=== PATIENT | male | born 1990 | race Caucasian/White ===

== ENCOUNTER 2018-04-23 10:30 | Inpatient (IN) | payer OTHER, MEDICAID ==
[2018-04-23] MEDS ORDERED: METOPROLOL TART 25 MG TABLET PO (11:00)
[2018-04-23] MEDS: LORazepam 2 MG TAB PO ×2 (11:44→19:15)
[2018-04-23] MEDS ORDERED: MOM 30ML SUSPENSION UDC PO (16:00)
[2018-04-23] MEDS ORDERED: THIAMINE 100 MG TAB PO (16:15)
[2018-04-23] MEDS ORDERED: NICOTINE 21MG/24HR 1 EA TRANSDERMAL TD (16:30)
[2018-04-23] MEDS: GABAPENTIN 300 MG CAP PO ×2 (16:39→20:27)
[2018-04-23] MEDS: OMEPRAZOLE 20 MG CAP PO (16:39)
[2018-04-23] MEDS: ASPIRIN 81 MG ENTERIC TAB PO (16:39)
[2018-04-23] MEDS: NICOTINE 21MG/24HR 1 EA TRANSDERMAL TD (16:40)
[2018-04-23] MEDS: LORazepam 1 MG TAB PO (17:16)
[2018-04-23] MEDS: QUEtiapine FUMARATE 200 MG TAB PO (20:27)
[2018-04-23] MEDS: ACETAMINOPHEN TAB 650MG DOSE (2X325MG) PO (20:33)
[2018-04-23] MEDS: OXAZEPAM 15 MG CAP PO (20:56)
[2018-04-24] MEDS: OXAZEPAM 15 MG CAP PO ×6 (04:49→17:21)
[2018-04-24] MEDS: cloNIDine 0.1 MG TAB PO (07:41)
[2018-04-24] MEDS ORDERED: NICOTINE 21MG/24HR 1 EA TRANSDERMAL TD (09:00)
[2018-04-24] MEDS: VENLAFAXINE 37.5 MG TAB PO ×2 (09:00→22:52)
[2018-04-24] MEDS ORDERED: THIAMINE 100 MG TAB PO (09:00)
[2018-04-24 09:27] LABS: HEMATOCRIT 50.8 % (42.0-52.0); HEMOGLOBIN 16.8 g/dl (13.5-17.5); MEAN CORPUSCULAR HEMOGLOBIN 29.7 pg (27.0-33.0); MEAN CORPUSCULAR HGB CONC 33.1 g/dl (32.0-36.5); MEAN CORPUSCULAR VOLUME 89.9 fl (80.0-96.0); PLATELET COUNT, AUTOMATED 221 10^3/uL (150-450); RED BLOOD COUNT 5.65 10^6/uL (4.30-6.10); RED CELL DISTRIBUTION WIDTH 13.5 % (11.5-14.5)
[2018-04-24] MEDS: FOLIC ACID 1 MG TAB PO (09:47)
[2018-04-24] MEDS: GABAPENTIN 300 MG CAP PO ×3 (09:47→22:53)
[2018-04-24] MEDS: OMEPRAZOLE 20 MG CAP PO (09:47)
[2018-04-24] MEDS: THIAMINE 100 MG TAB PO ×2 (09:47→22:53)
[2018-04-24] MEDS: NICOTINE 21MG/24HR 1 EA TRANSDERMAL TD (09:48)
[2018-04-24] MEDS: MULTIVITAMINS/MINERALS THERAP 1 TAB PO (09:48)
[2018-04-24] MEDS: ASPIRIN 81 MG ENTERIC TAB PO (09:48)
[2018-04-24 09:56] LABS: ALBUMIN 3.8 GM/DL (3.2-5.2); ALBUMIN/GLOBULIN RATIO 1.06 (1.00-1.93); ALKALINE PHOSPHATASE 79 U/L (45-117); ALT/SGPT 16 U/L (12-78); AMYLASE 45 U/L (25-115); ANION GAP 6 MEQ/L (8-16); AST/SGOT 9 U/L (7-37); BILIRUBIN,TOTAL 0.6 MG/DL (0.2-1.0); BLOOD UREA NITROGEN 8 MG/DL (7-18); CALCIUM LEVEL 9.2 MG/DL (8.5-10.1); CARBON DIOXIDE LEVEL 26 MEQ/L (21-32); CHLORIDE LEVEL 109 MEQ/L (98-107); CREATININE FOR GFR 1.05 MG/DL (0.70-1.30); GLOMERULAR FILTRATION RATE > 60.0 (>60); GLUCOSE, FASTING 103 MG/DL (70-100); LIPASE 170 U/L (73-393); POTASSIUM SERUM 3.9 MEQ/L (3.5-5.1); SODIUM LEVEL 141 MEQ/L (136-145); THYROID STIMULATING HORMONE 0.546 uIU/ML (0.358-3.740); TOTAL PROTEIN 7.4 GM/DL (6.4-8.2)
[2018-04-24 12:02] LABS: HEPATITIS B SURFACE ANTIGEN NEGATIVE (NEGATIVE)
[2018-04-24 12:30] LABS: HEPATITIS B CORE ANTIBODY IGM NEGATIVE (NEGATIVE)
[2018-04-24 12:31] LABS: HIV 1&2 SCREEN CENTAUR NEGATIVE (NEGATIVE)
[2018-04-24 12:32] LABS: HEPATITIS A ANTIBODY IGM NEGATIVE (NEGATIVE)
[2018-04-24 12:57] LABS: HEPATITIS C VIRUS ABY INDEX > 11.0 INDEX (<0.8)
[2018-04-24] MEDS: RIVAROXABAN 20 MG TAB (XARELTO) PO (17:21)
[2018-04-24] MEDS: MAALOX 30 ML SUSP *UDC PO (19:50)
[2018-04-25] MEDS: QUEtiapine FUMARATE 200 MG TAB PO ×2 (00:07→23:42)
[2018-04-25] MEDS: OXAZEPAM 15 MG CAP PO ×4 (00:08→17:53)
[2018-04-25] MEDS: THIAMINE 100 MG TAB PO ×2 (10:01→21:34)
[2018-04-25] MEDS: ASPIRIN 81 MG ENTERIC TAB PO (10:01)
[2018-04-25] MEDS: NICOTINE 21MG/24HR 1 EA TRANSDERMAL TD (10:01)
[2018-04-25] MEDS: GABAPENTIN 300 MG CAP PO ×3 (10:01→21:35)
[2018-04-25] MEDS: FOLIC ACID 1 MG TAB PO (10:02)
[2018-04-25] MEDS: OMEPRAZOLE 20 MG CAP PO (10:02)
[2018-04-25] MEDS: VENLAFAXINE 37.5 MG TAB PO ×2 (10:02→21:34)
[2018-04-25] MEDS: MULTIVITAMINS/MINERALS THERAP 1 TAB PO (10:02)
[2018-04-25] MEDS: RIVAROXABAN 20 MG TAB (XARELTO) PO (17:53)
[2018-04-26] MEDS: GABAPENTIN 300 MG CAP PO ×3 (08:22→23:01)
[2018-04-26] MEDS: FOLIC ACID 1 MG TAB PO (08:22)
[2018-04-26] MEDS: OMEPRAZOLE 20 MG CAP PO (08:22)
[2018-04-26] MEDS: MULTIVITAMINS/MINERALS THERAP 1 TAB PO (08:22)
[2018-04-26] MEDS: NICOTINE 21MG/24HR 1 EA TRANSDERMAL TD (08:22)
[2018-04-26] MEDS: ASPIRIN 81 MG ENTERIC TAB PO (08:22)
[2018-04-26] MEDS: VENLAFAXINE 37.5 MG TAB PO ×2 (08:28→23:01)
[2018-04-26] MEDS: THIAMINE 100 MG TAB PO ×2 (08:28→23:01)
[2018-04-26] MEDS: OXAZEPAM 15 MG CAP PO (11:54)
[2018-04-26] MEDS: RIVAROXABAN 20 MG TAB (XARELTO) PO (18:06)
[2018-04-26] MEDS: QUEtiapine FUMARATE 200 MG TAB PO (23:01)
[2018-04-26] MEDS: MAALOX 30 ML SUSP *UDC PO (23:04)
[2018-04-27] MEDS: FOLIC ACID 1 MG TAB PO (08:22)
[2018-04-27] MEDS: MULTIVITAMINS/MINERALS THERAP 1 TAB PO (08:22)
[2018-04-27] MEDS: GABAPENTIN 300 MG CAP PO (08:22)
[2018-04-27] MEDS: OMEPRAZOLE 20 MG CAP PO (08:22)
[2018-04-27] MEDS: VENLAFAXINE 37.5 MG TAB PO (08:24)
[2018-04-27] MEDS: ASPIRIN 81 MG ENTERIC TAB PO (08:24)
[2018-04-27] MEDS: NICOTINE 21MG/24HR 1 EA TRANSDERMAL TD (08:24)
[2018-04-28 00:06] LABS: HCV RNA NAA QUALITATIVE Negative (Negative)
== END 2018-04-27 13:00 | disposition home or self-care (01) | DRG 751 ==
LOC: M ED 10:30 → M ED INP 13:28 → M PSY 14:40
DX: F33.2 Major depressive disorder, recurrent severe without psychotic features (principal); F19.24 Other psychoactive substance dependence with psychoactive substance-induced mood disorder; F10.10 Alcohol abuse, uncomplicated; F17.210 Nicotine dependence, cigarettes, uncomplicated; K21.9 Gastro-esophageal reflux disease without esophagitis; G89.29 Other chronic pain; R10.11 Right upper quadrant pain; Z79.01 Long term (current) use of anticoagulants; Z79.899 Other long term (current) drug therapy; Z86.19 Personal history of other infectious and parasitic diseases; Z88.0 Allergy status to penicillin

== ENCOUNTER 2018-05-01 01:40 | Inpatient (IN) | payer OTHER ==
[2018-05-01 02:18] LABS: HEMATOCRIT 43.8 % (42.0-52.0); HEMOGLOBIN 14.5 g/dl (13.5-17.5); MEAN CORPUSCULAR HEMOGLOBIN 30.1 pg (27.0-33.0); MEAN CORPUSCULAR HGB CONC 33.1 g/dl (32.0-36.5); MEAN CORPUSCULAR VOLUME 91.1 fl (80.0-96.0); PLATELET COUNT, AUTOMATED 186 10^3/uL (150-450); RED BLOOD COUNT 4.81 10^6/uL (4.30-6.10); WHITE BLOOD COUNT 8.9 10^3/uL (4.0-10.0)
[2018-05-01 02:50] LABS: ALBUMIN 3.5 GM/DL (3.2-5.2); ALBUMIN/GLOBULIN RATIO 1.06 (1.00-1.93); ALKALINE PHOSPHATASE 73 U/L (45-117); ALT/SGPT 30 U/L (12-78); ANION GAP 8 MEQ/L (8-16); AST/SGOT 72 U/L (7-37); BILIRUBIN,DIRECT < 0.1 MG/DL (0.0-0.2); BILIRUBIN,TOTAL 0.2 MG/DL (0.2-1.0); BLOOD UREA NITROGEN 8 MG/DL (7-18); CARBON DIOXIDE LEVEL 26 MEQ/L (21-32); CHLORIDE LEVEL 109 MEQ/L (98-107); ETHYL ALCOHOL (ETHANOL) 0.202 % (0.000-0.010); GLOMERULAR FILTRATION RATE > 60.0 (>60); GLUCOSE, FASTING 99 MG/DL (70-100); POTASSIUM SERUM 3.6 MEQ/L (3.5-5.1); SALICYLATE LEVEL 1.8 MG/DL (5.0-30.0); SODIUM LEVEL 143 MEQ/L (136-145); THYROID STIMULATING HORMONE 0.344 uIU/ML (0.358-3.740); TOTAL PROTEIN 6.8 GM/DL (6.4-8.2)
[2018-05-01 02:52] LABS: ACETAMINOPHEN LEVEL < 2.0 UG/ML (10.0-30.0)
[2018-05-01 07:15] LABS: AMPHETAMINES LEVEL URINE NEGATIVE (NEGATIVE); BARBITURATES URINE NEGATIVE (NEGATIVE); BENZODIAZEPINES URINE NEGATIVE (NEGATIVE); CANNABINOIDS URINE POSITIVE (NEGATIVE); COCAINE METABOLITE URINE NEGATIVE (NEGATIVE); METHADONE URINE NEGATIVE (NEGATIVE); OPIATES URINE NEGATIVE (NEGATIVE); PHENCYCLIDINE URINE NEGATIVE (NEGATIVE)
[2018-05-01] MEDS: OXAZEPAM 15 MG CAP PO (09:15)
[2018-05-01] MEDS ORDERED: ACETAMINOPHEN TAB 650MG DOSE (2X325MG) PO (13:00)
[2018-05-01] MEDS ORDERED: traZODone 50 MG TAB PO (13:00)
[2018-05-01] MEDS ORDERED: MAALOX 30 ML SUSP *UDC PO (13:00)
[2018-05-01] MEDS ORDERED: MOM 30ML SUSPENSION UDC PO (13:00)
[2018-05-01] MEDS: THIAMINE 100 MG TAB PO ×2 (14:10→21:00)
[2018-05-01] MEDS: FOLIC ACID 1 MG TAB PO (14:10)
[2018-05-01] MEDS: NICOTINE 21MG/24HR 1 EA TRANSDERMAL TD (14:10)
[2018-05-01] MEDS: MULTIVITAMINS/MINERALS THERAP 1 TAB PO (14:10)
[2018-05-01] MEDS: LORazepam 2 MG TAB PO ×2 (14:18→20:09)
[2018-05-01 15:16] LABS: AMYLASE 45 U/L (25-115); LIPASE 150 U/L (73-393)
[2018-05-01] MEDS: OMEPRAZOLE 20 MG CAP PO (15:54)
[2018-05-01] MEDS: GABAPENTIN 300 MG CAP PO ×2 (15:54→21:00)
[2018-05-01] MEDS: RIVAROXABAN 20 MG TAB (XARELTO) PO (17:20)
[2018-05-02] MEDS: QUEtiapine FUMARATE 100 MG TAB PO ×2 (00:32→23:22)
[2018-05-02] MEDS: LORazepam 2 MG TAB PO ×3 (00:37→23:16)
[2018-05-02] MEDS: GABAPENTIN 300 MG CAP PO ×3 (08:45→23:18)
[2018-05-02] MEDS: FOLIC ACID 1 MG TAB PO (08:45)
[2018-05-02] MEDS: THIAMINE 100 MG TAB PO ×2 (08:45→23:18)
[2018-05-02] MEDS: MULTIVITAMINS/MINERALS THERAP 1 TAB PO (08:45)
[2018-05-02] MEDS: OMEPRAZOLE 20 MG CAP PO (08:45)
[2018-05-02] MEDS: NICOTINE 21MG/24HR 1 EA TRANSDERMAL TD (08:46)
[2018-05-02] MEDS: RIVAROXABAN 20 MG TAB (XARELTO) PO (17:31)
[2018-05-03] MEDS: GABAPENTIN 300 MG CAP PO ×3 (08:04→20:36)
[2018-05-03] MEDS: THIAMINE 100 MG TAB PO ×2 (08:04→20:36)
[2018-05-03] MEDS: NICOTINE 21MG/24HR 1 EA TRANSDERMAL TD (08:04)
[2018-05-03] MEDS: FOLIC ACID 1 MG TAB PO (08:04)
[2018-05-03] MEDS: MULTIVITAMINS/MINERALS THERAP 1 TAB PO (08:04)
[2018-05-03] MEDS: OMEPRAZOLE 20 MG CAP PO (08:04)
[2018-05-03] MEDS: RIVAROXABAN 20 MG TAB (XARELTO) PO (17:04)
[2018-05-03] MEDS: QUEtiapine FUMARATE 100 MG TAB PO (23:03)
[2018-05-04] MEDS: NICOTINE 21MG/24HR 1 EA TRANSDERMAL TD (09:06)
[2018-05-04] MEDS: OMEPRAZOLE 20 MG CAP PO (09:06)
[2018-05-04] MEDS: FOLIC ACID 1 MG TAB PO (09:06)
[2018-05-04] MEDS: MULTIVITAMINS/MINERALS THERAP 1 TAB PO (09:06)
[2018-05-04] MEDS: GABAPENTIN 300 MG CAP PO (09:06)
[2018-05-04] MEDS: MUPIROCIN 2% OINT 22 GM TUBE TOP (12:01)
[2018-05-04] MEDS: TETANUS/DIPHTHERIA TOX ADSORB ADULT 0.5ML SYR/VIAL (90714) IM (12:05)
== END 2018-05-04 14:30 | disposition home or self-care (01) | DRG 753 ==
LOC: M ED 01:40 → M ED INP 10:57 → M PSY 12:26
DX: F32.89 Other specified depressive episodes (principal); D68.9 Coagulation defect, unspecified; Z91.5 Personal history of self-harm; K21.9 Gastro-esophageal reflux disease without esophagitis; F17.200 Nicotine dependence, unspecified, uncomplicated; G89.29 Other chronic pain; R94.6 Abnormal results of thyroid function studies; Z79.01 Long term (current) use of anticoagulants; Z79.899 Other long term (current) drug therapy; Z88.0 Allergy status to penicillin

== ENCOUNTER 2018-05-08 21:23 | Inpatient (IN) | payer OTHER ==
[2018-05-08 23:04] LABS: HEMATOCRIT 44.6 % (42.0-52.0); HEMOGLOBIN 14.4 g/dl (13.5-17.5); MEAN CORPUSCULAR HGB CONC 32.3 g/dl (32.0-36.5); MEAN CORPUSCULAR VOLUME 92.9 fl (80.0-96.0); PLATELET COUNT, AUTOMATED 195 10^3/uL (150-450); RED CELL DISTRIBUTION WIDTH 14.6 % (11.5-14.5); WHITE BLOOD COUNT 9.1 10^3/uL (4.0-10.0)
[2018-05-08 23:23] LABS: ALBUMIN 3.4 GM/DL (3.2-5.2); ALBUMIN/GLOBULIN RATIO 1.03 (1.00-1.93); ALKALINE PHOSPHATASE 71 U/L (45-117); ALT/SGPT 25 U/L (12-78); ANION GAP 10 MEQ/L (8-16); AST/SGOT 30 U/L (7-37); BILIRUBIN,DIRECT < 0.1 MG/DL (0.0-0.2); BILIRUBIN,TOTAL 0.3 MG/DL (0.2-1.0); BLOOD UREA NITROGEN 7 MG/DL (7-18); CALCIUM LEVEL 7.9 MG/DL (8.5-10.1); CARBON DIOXIDE LEVEL 25 MEQ/L (21-32); CHLORIDE LEVEL 110 MEQ/L (98-107); CREATININE FOR GFR 0.88 MG/DL (0.70-1.30); ETHYL ALCOHOL (ETHANOL) 0.041 % (0.000-0.010); GLOMERULAR FILTRATION RATE > 60.0 (>60); GLUCOSE, FASTING 98 MG/DL (70-100); POTASSIUM SERUM 3.6 MEQ/L (3.5-5.1); SALICYLATE LEVEL < 1.7 MG/DL (5.0-30.0); SODIUM LEVEL 145 MEQ/L (136-145); THYROID STIMULATING HORMONE 0.796 uIU/ML (0.358-3.740); TOTAL PROTEIN 6.7 GM/DL (6.4-8.2)
[2018-05-08 23:25] LABS: AMPHETAMINES LEVEL URINE NEGATIVE (NEGATIVE); BARBITURATES URINE NEGATIVE (NEGATIVE); BENZODIAZEPINES URINE NEGATIVE (NEGATIVE); CANNABINOIDS URINE POSITIVE (NEGATIVE); COCAINE METABOLITE URINE NEGATIVE (NEGATIVE); METHADONE URINE NEGATIVE (NEGATIVE); OPIATES URINE NEGATIVE (NEGATIVE); PHENCYCLIDINE URINE NEGATIVE (NEGATIVE)
[2018-05-08 23:26] LABS: ACETAMINOPHEN LEVEL < 2.0 UG/ML (10.0-30.0)
[2018-05-09] MEDS ORDERED: ACETAMINOPHEN TAB 650MG DOSE (2X325MG) PO (01:00)
[2018-05-09] MEDS ORDERED: MOM 30ML SUSPENSION UDC PO (01:00)
[2018-05-09] MEDS ORDERED: MAALOX 30 ML SUSP *UDC PO (01:00)
[2018-05-09] MEDS: NICOTINE 21MG/24HR 1 EA TRANSDERMAL TD (08:51)
[2018-05-09] MEDS: GABAPENTIN 300 MG CAP PO ×3 (08:51→22:03)
[2018-05-09] MEDS: OMEPRAZOLE 20 MG CAP PO (08:51)
[2018-05-09] MEDS: RIVAROXABAN 20 MG TAB (XARELTO) PO (19:30)
[2018-05-09] MEDS: QUEtiapine FUMARATE 100 MG TAB PO (23:24)
[2018-05-10] MEDS: ACYCLOVIR 5% OINT 15GM TOP ×5 (06:02→22:38)
[2018-05-10] MEDS: BACITRACIN OINT 30GM TOP ×2 (08:46→21:00)
[2018-05-10] MEDS: NICOTINE 21MG/24HR 1 EA TRANSDERMAL TD (08:46)
[2018-05-10] MEDS: MUPIROCIN 2% OINT 22 GM TUBE TOP ×2 (08:49→21:00)
[2018-05-10] MEDS: GABAPENTIN 300 MG CAP PO ×3 (08:52→22:36)
[2018-05-10] MEDS: OMEPRAZOLE 20 MG CAP PO (08:52)
[2018-05-10] MEDS: RIVAROXABAN 20 MG TAB (XARELTO) PO (17:47)
[2018-05-10] MEDS: QUEtiapine FUMARATE 100 MG TAB PO (22:37)
[2018-05-11] MEDS: ACYCLOVIR 5% OINT 15GM TOP ×3 (06:08→12:24)
[2018-05-11] MEDS: GABAPENTIN 300 MG CAP PO (08:50)
[2018-05-11] MEDS: BACITRACIN OINT 30GM TOP (08:50)
[2018-05-11] MEDS: OMEPRAZOLE 20 MG CAP PO (08:50)
[2018-05-11] MEDS: MUPIROCIN 2% OINT 22 GM TUBE TOP (08:50)
[2018-05-11] MEDS: NICOTINE 21MG/24HR 1 EA TRANSDERMAL TD (09:00)
== END 2018-05-11 13:30 | disposition home or self-care (01) | DRG 754 ==
LOC: M ED INP 05-09 00:41 → M PSY 05-09 03:15 → M ED 21:23
DX: F32.9 Major depressive disorder, single episode, unspecified (principal); D68.9 Coagulation defect, unspecified; F10.10 Alcohol abuse, uncomplicated; F19.94 Other psychoactive substance use, unspecified with psychoactive substance-induced mood disorder; Z59.0 Homelessness; Z79.899 Other long term (current) drug therapy; B18.2 Chronic viral hepatitis C; K21.9 Gastro-esophageal reflux disease without esophagitis; G47.00 Insomnia, unspecified; F41.9 Anxiety disorder, unspecified; G89.29 Other chronic pain

== ENCOUNTER 2018-05-11 23:07 | Emergency (ER) | payer OTHER ==
[2018-05-11 21:28] LABS: BASO % 0.2 % (0.0-1.0); EOS # 0.1 10^3/uL (0.0-0.50); EOS % 0.8 % (0.0-3.0); HEMATOCRIT 47.1 % (42.0-52.0); HEMOGLOBIN 15.6 g/dl (13.5-17.5); IMMATURE GRANULOCYTE % 0.3 % (0-3.0); LYMPH # 2.1 10^3/uL (1.5-6.5); LYMPH % 20.4 % (24.0-44.0); MEAN CORPUSCULAR HEMOGLOBIN 30.2 pg (27.0-33.0); MEAN CORPUSCULAR HGB CONC 33.1 g/dl (32.0-36.5); MEAN CORPUSCULAR VOLUME 91.1 fl (80.0-96.0); MONO # 0.5 10^3/uL (0.0-0.8); MONO % 4.7 % (0.0-5.0); NEUTROPHILS # 7.6 10^3/uL (1.8-7.7); NEUTROPHILS % 73.6 % (36.0-66.0); PLATELET COUNT, AUTOMATED 203 10^3/uL (150-450); RED BLOOD COUNT 5.17 10^6/uL (4.30-6.10); RED CELL DISTRIBUTION WIDTH 14.4 % (11.5-14.5); WHITE BLOOD COUNT 10.4 10^3/uL (4.0-10.0)
[2018-05-11] MEDS: NS 1,000 ML IV (21:38)
[2018-05-11 21:39] LABS: ALBUMIN 3.7 GM/DL (3.2-5.2); ALKALINE PHOSPHATASE 62 U/L (45-117); ALT/SGPT 22 U/L (12-78); AMYLASE 60 U/L (25-115); ANION GAP 8 MEQ/L (8-16); AST/SGOT 20 U/L (7-37); BILIRUBIN,DIRECT < 0.1 MG/DL (0.0-0.2); BILIRUBIN,TOTAL 0.3 MG/DL (0.2-1.0); BLOOD UREA NITROGEN 8 MG/DL (7-18); CALCIUM LEVEL 8.2 MG/DL (8.5-10.1); CARBON DIOXIDE LEVEL 27 MEQ/L (21-32); CHLORIDE LEVEL 108 MEQ/L (98-107); CREATININE FOR GFR 1.01 MG/DL (0.70-1.30); GLOMERULAR FILTRATION RATE > 60.0 (>60); GLUCOSE, FASTING 107 MG/DL (70-100); POTASSIUM SERUM 3.6 MEQ/L (3.5-5.1); SODIUM LEVEL 143 MEQ/L (136-145); TOTAL PROTEIN 7.4 GM/DL (6.4-8.2)
[2018-05-11 21:40] LABS: ETHYL ALCOHOL (ETHANOL) 0.152 % (0.000-0.010); LIPASE 181 U/L (73-393)
== END 2018-05-11 23:48 | disposition home or self-care (01) ==
LOC: M ED 23:07
DX: R10.13 Epigastric pain (principal); F12.120 Cannabis abuse with intoxication, uncomplicated; F19.10 Other psychoactive substance abuse, uncomplicated; B19.20 Unspecified viral hepatitis C without hepatic coma; F32.9 Major depressive disorder, single episode, unspecified; F41.9 Anxiety disorder, unspecified; G89.29 Other chronic pain; K21.9 Gastro-esophageal reflux disease without esophagitis; Z88.0 Allergy status to penicillin; Z79.899 Other long term (current) drug therapy; Z79.01 Long term (current) use of anticoagulants
CPT/HCPCS: 76705